=== PATIENT | female | born 1965 | race Caucasian/White ===

== ENCOUNTER 2023-09-12 17:36 | Emergency (ER) | payer MEDICAID ==
[~2023-09-12] VITALS: Ht 162.6 cm; Wt 93.0 kg
[2023-09-12 18:15] VITALS: BP 134/75; PULSE 81; RESP 18; TEMP 97.9; O2SAT 99
[2023-09-12] MEDS ORDERED: ACETAMINOPHEN 325 MG TAB PO ONE (20:45)
[2023-09-12] MEDS ORDERED: TETANUS-DIPTH-ACEL PERTUSSIS 0.5ML SYR Tdap IM ONE (21:30)
[2023-09-12] MEDS ORDERED: IBUP-1456 PO (23:06)
[2023-09-12] MEDS ORDERED: CYCL-837 PO (23:06)
[2023-09-12] MEDS ORDERED: AMOX875T4 PO (23:06)
== END 2023-09-12 23:49 | disposition home or self-care (01) ==
LOC: ER 17:36
DX: S01.511A Laceration without foreign body of lip, initial encounter (principal); S16.1XXA Strain of muscle, fascia and tendon at neck level, initial encounter; I10 Essential (primary) hypertension; E11.9 Type 2 diabetes mellitus without complications; Z90.710 Acquired absence of both cervix and uterus; Z79.1 Long term (current) use of non-steroidal anti-inflammatories (NSAID); Z79.2 Long term (current) use of antibiotics; Z79.899 Other long term (current) drug therapy; Z88.2 Allergy status to sulfonamides; W01.198A Fall on same level from slipping, tripping and stumbling with subsequent striking against other object, initial encounter; Y93.89 Activity, other specified; Y92.89 Other specified places as the place of occurrence of the external cause; Y99.8 Other external cause status
CPT/HCPCS: 12011; 70450; 70486; 72125; 90471; 90715

== ENCOUNTER 2024-02-12 12:29 | Emergency (ER) | payer MEDICAID ==
[~2024-02-12] VITALS: Ht 162.6 cm; Wt 94.5 kg
[~2024-02-12 12:29] MED LIST: AMOX875T4 PO; CYCL-837 PO; IBUP-1456 PO
[2024-02-12 13:10] VITALS: TEMP 98; O2SAT 98
[2024-02-12] MEDS: MORPHINE SULFATE 4 MG/ML SYR/VIAL IM ONE (13:57)
[2024-02-12] MEDS ORDERED: NAPR-746 PO (14:22)
[2024-02-12] MEDS ORDERED: METH4PAK PO (14:22)
[2024-02-12 14:30] VITALS: BP 129/84; PULSE 85; RESP 18
== END 2024-02-12 14:22 | disposition home or self-care (01) ==
LOC: ER 12:29
DX: M54.42 Lumbago with sciatica, left side (principal); M54.16 Radiculopathy, lumbar region; E11.9 Type 2 diabetes mellitus without complications; I10 Essential (primary) hypertension; Z90.710 Acquired absence of both cervix and uterus
CPT/HCPCS: 72100; 96372; 99283; J2270